=== PATIENT | female | born 1955 | race Caucasian/White ===

== ENCOUNTER → 2016-05-16 | Outpatient (CLI) | payer BC ==
--- NOTE | 2016-05-16 16:19 | REP ---
Clinical: Chest pain. Dyspnea . Comparison: None . Technique: PA and lateral. Findings: The mediastinum and cardiac silhouette are normal. The lung cunningham are clear and without acute consolidation, effusion, or pneumothorax. The skeletal structures are intact and normal. Impression: 1. No focal consolidation. Signed by Lawrence Sliva MD 05/16/2016 04:11 P
== END ==
LOC: M WUC 15:57
PROVIDERS: ATTEND Physician Assistant
DX: R07.1 Chest pain on breathing (principal)